=== PATIENT | female | born 1980 | race Caucasian/White ===

== ENCOUNTER 2020-03-19 09:24 | Outpatient (CLI) | payer OTHER, SELFPAY ==
[2020-03-19 09:51] LABS: Hematocrit 40.7 % (37.0-47.0); Hemoglobin 13.8 g/dL (12.0-15.0); Mean Corpuscular HGB Conc 33.9 g/dl (32-36); Mean Corpuscular Hemoglobin 31.5 pg (26-34); Mean Corpuscular Volume 92.9 fl (80-100); Mean Platelet Volume 9.7 fl (7.4-10.4); Platelet Count Result 243 k/mm3 (150-375); Red Blood Count 4.38 M/mm3 (4.2-5.4); Red Cell Distribution Width 12.5 % (11.5-14.5); White Blood Count 4.4 K/mm3 (4.5-10.0)
== END 2020-03-19 09:25 | disposition home or self-care (01) ==
LOC: ANHSURGERY 09:34
PROVIDERS: PCP Physician Assistant; Visit Provider Obstetrics & Gynecology
DX: R10.2 Pelvic and perineal pain (principal)
CPT/HCPCS: 36415; 85027; 87086; 87088

== ENCOUNTER 2020-03-21 03:54 | Outpatient (CLI) | payer OTHER, SELFPAY ==
[2020-03-21 19:05] LABS: SARS-CoV-2 RNA PCR Negative
== END 2020-03-21 03:55 | disposition home or self-care (01) ==
LOC: ANHCOVIDDT 03:54
PROVIDERS: PCP Physician Assistant; Visit Provider Obstetrics & Gynecology
DX: Z01.812 Encounter for preprocedural laboratory examination (principal); Z20.828 Contact with and (suspected) exposure to other viral communicable diseases
CPT/HCPCS: 87635; C9803; U0003

== ENCOUNTER 2020-03-23 01:10 | Day surgery (SDC) | payer OTHER, SELFPAY ==
[2020-03-13 11:08] VITALS: BMI 24.0
--- NOTE | 2020-03-22 13:59 | WPDANESEPPF ---
Anes - Initial Pre Proc Eval Procedure: Operation Date: 03/23/20 12:00 Proposed Procedures p Total Laparoscopic Hysterectomy With Bilateral Salpingectomy - Laurence Jones MD s Cystoscopy - Laurence Jones MD <Gene Greenwood MD - Last Filed: 03/26/20 06:49> Date/Time: 03/22/20 13:59 <Gene Greenwood MD - Last Filed: 03/26/20 06:49> Surgeon: Laurence Jones MD <Gene Greenwood MD - Last Filed: 03/26/20 06:49> Pre Op Diagnosis: Abnormal Uterine Bleeding, Pelvic Pain <Gene Greenwood MD - Last Filed: 03/26/20 06:49> Patient Data Age: 40 Gender: F Height: 1.63 m Weight: 63.5 kg <Gene Greenwood MD - Last Filed: 03/26/20 06:49> Allergies Allergy/AdvReac Type Severity Reaction Status Date / Time adhesive tape Allergy REDNESS, Verified 03/23/20 11:29 SWELLING <Gene Greenwood MD - Last Filed: 03/26/20 06:49> Home Medications Medication Instructions Recorded Confirmed Type cholecalciferol (vitamin D3) 150 mcg PO DAILY 03/13/20 03/23/20 History [Vitamin D3] multivitamin 1 tablet PO DAILY 03/13/20 03/23/20 History thyroid (pork) [ARMOR RECONNAISSANCE SPECIALIST Thyroid] 30 mg PO DAILY 03/13/20 03/23/20 History hydrocodone-acetaminophen [[place]] 1 tab PO Q3H PRN #10 tablet 03/23/20 Rx ketorolac 10 mg PO Q6H 5 Days #20 tablet 03/23/20 Rx <Gene Greenwood MD - Last Filed: 03/26/20 06:49> Patient hx anesthesia problems: none <Jagdish Epps MD - Last Filed: 03/23/20 11:58> Family hx anesthesia problems: none <Jagdish Epps MD - Last Filed: 03/23/20 11:58> PMFSH Past Medical History Medical History: Medical History Hypothyroidism PCOS (polycystic ovarian syndrome) <Gene Greenwood MD - Last Filed: 03/26/20 06:49> Surgical History Surgical History: Surgical History H/O arthroscopic knee surgery H/O laparoscopy <Gene Greenwood MD - Last Filed: 03/26/20 06:49> Social History Social History: Social History Smoking status: Never smoker Alcohol intake: current Drinks per week: 5 Spiritual care concerns: No <Gene Greenwood MD - Last Filed: 03/26/20 06:49> Anes - Eval Final PreProcedure Day of Procedure 03/22/20 13:59 <Gene Greenwood MD - Last Filed: 03/26/20 06:49> Patient weight: normal <Gene Greenwood MD - Last Filed: 03/26/20 06:49> normal <Jagdish Epps MD - Last Filed: 03/23/20 11:58> Heart: regular rate and rhythm <Gene Greenwood MD - Last Filed: 03/26/20 06:49> regular rate and rhythm <Jagdish Epps MD - Last Filed: 03/23/20 11:58> Lungs: clear to auscultation and normal air movement <Gene Greenwood MD - Last Filed: 03/26/20 06:49> clear to auscultation <Jagdish Epps MD - Last Filed: 03/23/20 11:58> Airway: Mallampati scale class II <Gene Greenwood MD - Last Filed: 03/26/20 06:49> Mallampati scale class II <Jagdish Epps MD - Last Filed: 03/23/20 11:58> Neurological: alert and oriented <Gene Greenwood MD - Last Filed: 03/26/20 06:49> alert and oriented <Jagdish Epps MD - Last Filed: 03/23/20 11:58> Last oral intake: >/= 8 hours <Gene Greenwood MD - Last Filed: 03/26/20 06:49> >/= 8 hours <Jagdish Epps MD - Last Filed: 03/23/20 11:58> ASA classification: II <Gene Greenwood MD - Last Filed: 03/26/20 06:49> II <Jagdish Epps MD - Last Filed: 03/23/20 11:58> Emergent: no <Gene Greenwood MD - Last Filed: 03/26/20 06:49> no <Jagdish Epps MD - Last Filed: 03/23/20 11:58> Anesthetic plan: proceed <Gene Greenwood MD - Last Filed: 03/26/20 06:49> proceed <Jagdish Epps MD - Last Filed: 03/23/20 11:58> Anesthesia type and monitoring: general
[2020-03-23] VITALS (9 sets, daily range): BP systolic 99–112; BP diastolic 36–70; PULSE 66–88; RESP 10–18; TEMP 36.1–36.6; O2SAT 97–100
[2020-03-23] MEDS: LACTATED RINGERS 1,000 ML 30 ML IV CONT ×2 (11:06→15:27)
[2020-03-23] MEDS: ACETAMINOPHEN 500 MG TABLET 1000 MG PO (11:09)
[2020-03-23] MEDS: KETOROLAC 15 MG/ML VIAL (*BKC) IV PUSH (11:10)
[2020-03-23] MEDS: SCOPOLAMINE 1.5 MG PATCH TRANSDERM (12:09)
--- NOTE | 2020-03-23 12:16 | PM.HPGS ---
History of Present Illness History of Present Illness Consent: Risks, benefits, and alternatives have been discussed and questions answered. Patient agrees to proceed with procedure. Chief complaint: Abnormal Uterine Bleeding, Pelvic Pain Narrative: Ayala Torres is a 40 year old female had a laparoscopy showing pelvic congestion syndrome. Discussed risk/benefits/altenratives, will proceed with total laparoscopic hysterectomy with cystoscopy Review of Systems Review of Systems: All systems reviewed & are unremarkable except as noted in HPI and below Constitutional: Constitutional: Reports no additional constitutional complaints Eyes: Eyes: Reports no additional eye complaints ENT: Reports system reviewed and no additional complaints, except as documented Cardiovascular: Cardiovascular: Reports no additional cardiovascular complaints Respiratory: Respiratory: Reports no additional respiratory complaints Gastrointestinal: Gastrointestinal: Reports no additional gastrointestinal complaints Genitourinary: Genitourinary: Reports no additional female genitourinary complaints Musculoskeletal: Musculoskeletal: Reports no additional musculoskeletal complaints Integumentary/Breasts: Skin/Breast: Reports system reviewed and no additional complaints, except as docu Neurologic: Reports system reviewed and no additional complaints, except as documented Psychiatric: Psychiatric: Reports no additional psychiatric complaints Endocrine: Endocrine: Reports no additional endocrine complaints Hematologic/Lymphatic: Hematologic/Lymphatic: Reports no additional hematologic/lymphatic complaints Allergic/Immunologic: Allergic/Immunologic: Reports no additional allergic/immunologic complaints PMF Past Medical History Medical History Hypothyroidism PCOS (polycystic ovarian syndrome) Surgical History Surgical History H/O arthroscopic knee surgery H/O laparoscopy Social History Social History Smoking status: Never smoker Alcohol intake: current Drinks per week: 5 Spiritual care concerns: No Meds Home Medications and Allergies Home Medications Medication Instructions Recorded Confirmed Type cholecalciferol (vitamin D3) 150 mcg PO DAILY 03/13/20 03/23/20 History [Vitamin D3] levonorgestrel [Mirena] 1 device INTRAUTERINE ONCE 03/13/20 03/13/20 History multivitamin 1 tablet PO DAILY 03/13/20 03/23/20 History thyroid (pork) [COMMERCIAL LENDING RELATIONSHIP MANAGER Thyroid] 30 mg PO DAILY 03/13/20 03/23/20 History Allergies Allergy/AdvReac Type Severity Reaction Status Date / Time adhesive tape Allergy REDNESS, Verified 03/23/20 11:29 SWELLING Vital Signs Vital Signs - 24 hr 03/23/20 11:00 Temperature 36.6 C Pulse Rate 66 Respiratory Rate 18 Blood Pressure 109/70 Pulse Oximetry 99 Exam Const: General: cooperative, healthy appearing, comfortable and no acute distress HENMT: Head: normal to inspection Ears: hearing grossly normal bilaterally General nose exam: Normal external nose present Face and sinus: normal facial exam Eyes: General: appearance normal, both eyes and all related structures Visual Goel: normal visual goel by confrontation Pupils: Equal, round and reactive pupils present EOM: EOMs intact bilaterally Neck: Neck: normal visual inspection and full ROM Resp: Effort & Inspection: normal respiratory effort Cardio: Jugular venous distension: no JVD Palpation: normal PMI Rate: regular rate GI: Inspection: normal to inspection Percussion: Yes normal to percussion Auscultation: normal bowel sounds Rectal Exam: visual inspection normal Back/Spine/Pelvis: Back: no CVA tenderness Skin: General skin exam: normal color and no rashes or lesions noted Neuro: General: oriented to person, oriented to place, oriented to time an
--- NOTE | 2020-03-23 12:20 | WPDHPUPDATE1 ---
History and Physical Update Update Date/Time: 03/23/20 12:20 History and Physical has been reviewed, including an updated exam of the patient. There are NO changes in the patient's condition. Risks, benefits, and alternatives have been discussed and questions answered. Patient agrees to proceed with procedure.
[2020-03-23] MEDS: ceFAZolin 2 GM/D5W 50 ML 2 GM/50 ML BAG IVPB (12:31)
[2020-03-23] MEDS: BUPIVACAINE/EPINEPHRINE 0.5% 10 ML VIAL INFILTRATE (13:29)
--- NOTE | 2020-03-23 15:13 | PM.PROC ---
Procedure Note - Detailed Date of procedure: 03/23/20 Pre-op diagnosis: Abnormal Uterine Bleeding, Pelvic Pain Post-op diagnosis: same Procedure performed: Total laparoscopic hysterectomy with bilateral salpingectomy and cystoscopy Description of procedure: She was taken to the operating room where general anesthesia was found to be adequate. She was then prepared and draped in the dorsal lithotomy position in [facility]. A speculum was used to visualize the cervix and a single toothed tenaculum placed on the anterior lip. A Vcare medium uterine manipulator was placed within the cervix and intrauterine ballon insufflated. The tenacululm removed and the Vcare cup affixed on the cervix and set in place. The speculum was removed. Attention was turned to the umbilicus which was injected with 0.5% marcaine with epinephrine. The infraumbilical fold incised with a scalpel and veres needle used to enter into the peritoneum. Saline drop test was positive for peritoneal entry so CO2 was used for insufflation. A 5mm port was placed with optical entry. The patient was then placed in Trendelenberg. There were no adhesions. The uterus was elevated and bilateral tubes and ovaries were inspected. The right ovary had a cyst and was tipped down and adhesed to the right pelvic side wall. The left ovary and tube were free floating with recent ovarian cyst noted. Right and left 5mm ports were placed 3 fingerbreadths medial to the ASIS on both sides by injecting the skin with 0.5% marcaine with epinephrine, incising with the scalpel and placed with direct visualization A suprapubic port was placed in a similar fashion. The left tuboovarian ligament was cauterized and taken down to the wall of the uterus. I then traveled across the round ligament and through the broad ligament, then down through the uteroovarian ligament. The anterior leaf of the broad ligament was opened and incised to start the bladder flap. Posteriorly it was started as well. The uterine arteries were then cauterized. Attention was turned to the right where similarly the tuboovarian ligament was cauterized, followed by the round ligament, then the broad ligament, then through the uteroovarian ligament. I then elevated the uterus and took down the posteior leaf of the broad ligament. The anterior leaf was further dissected and completed in the midline. Then the bladder flap was develped by dissecting the bladder back. The right uterine artery was cauterized. The uterine manipulator pulled out and so the suzette was attempted to be used since the vcare balloon had popped. The Suzette was not staying in place either so it was removed and we completed the colpotomy incision vaginally. The pneumoperitoneum was released. So vaginally, the anterior lip of the cervix was grasp and the cervical vaginal mucosa was injected with 0.5% marcaine with epinephrine. A circumferential incision was made with Bovie [id number] from the cervicalvaginal junction. The cervix was dissected with the bovie for about a centimenter then a grasper was used to grasp the anterior vaginal cuff and Jha scissors used to dissect the bladder. Similarly the posterior cuff was dissected and I entered into the posterior culdesac. The Ligasure was used the cauterize the uterosacral ligaments bilaterally, then the cardinal ligament. I then entered into the anterior culdesac with mayos and retractor placed. Ligasure was used to complete the dissection of the cardinal ligaments and the uterus was then pulled through the vaginal incision. The cuff was inspected and hemostatic so it was closed with 0-Vicryl suture in 4 figure of 8 sutures. Cystoscopy was used to visualize the bladder and appeared normal. Ureter jets spewed urine bilaterally. The bladder was intact. The bladder was then distended to 550cc. Then released the urine and looked again. 300cc was used to look a second time and there were trabeculations and increased vacularity.
[2020-03-23] MEDS: ONDANSETRON INJ 4 MG/2 ML VIAL IV PUSH (15:55)
--- NOTE | 2020-03-23 16:38 | PC.NURSE ---
This patient, Ayala Torres, was received from PACU per bed to room 286. Patient/family oriented to unit policies and routines
[2020-03-23] MEDS: KETOROLAC 30 MG/ML VIAL (*BKC) IV PUSH (17:35)
[2020-03-23] MEDS: LIDOCAINE 5% PATCH 1 PATCH TRANSDERM (19:00)
[2020-03-23 20:07] LABS: Basophils Percent Auto 0.2 % (0.2-1.2); Hematocrit 37.1 % (37.0-47.0); Hemoglobin 12.6 g/dL (12.0-15.0); Immature Granulocyte Absolute 0.03 K/mm3 (0.00-0.031); Immature Granulocyte Percent A 0.3 % (0-0.5); Lymphocytes Absolute Auto 0.39 K/mm3 (0.9-3.2); Lymphocytes Percent Auto 4.2 % (18.3-44.2); Mean Corpuscular Volume 91.2 fl (80-100); Mean Platelet Volume 9.4 fl (7.4-10.4); Monocytes Absolute Auto 0.1 K/mm3 (0.1-0.6); Monocytes Percent Auto 0.9 % (2.6-8.5); Neutrophils Absolute Auto 8.8 K/mm3 (1.3-6.7); Neutrophils Percent Auto 94.4 % (45.5-73.1); Platelet Count Result 200 k/mm3 (150-375); Red Blood Count 4.07 M/mm3 (4.2-5.4); Red Cell Distribution Width 12.2 % (11.5-14.5); White Blood Count 9.3 K/mm3 (4.5-10.0)
== END 2020-03-23 20:35 | disposition home or self-care (01) ==
LOC: ANHSURGERY 15:51 → ANHOB2 16:40
PROVIDERS: PCP Physician Assistant; Visit Provider Obstetrics & Gynecology
PROC: 0UT9FZZ Resection of Uterus, Via Natural or Artificial Opening With Percutaneous Endoscopic Assistance (ICD-10-PCS; CPT 58571; principal; 2020-03-23 12:00)
PROC: 0TJB8ZZ Inspection of Bladder, Via Natural or Artificial Opening Endoscopic (ICD-10-PCS; CPT 52000; 2020-03-23 12:00)
DX: N93.9 Abnormal uterine and vaginal bleeding, unspecified (principal); R10.2 Pelvic and perineal pain; N72 Inflammatory disease of cervix uteri; N73.6 Female pelvic peritoneal adhesions (postinfective); E03.9 Hypothyroidism, unspecified; N94.89 Other specified conditions associated with female genital organs and menstrual cycle; N83.8 Other noninflammatory disorders of ovary, fallopian tube and broad ligament; E28.2 Polycystic ovarian syndrome
CPT/HCPCS: 58571; 36415; 85025; 88307; 99199; A9270; J0330; J0690; J1100; J1170; J1885; J2250; J2405; J2704; J2710; J3010; J7030; J7120

== ENCOUNTER 2020-06-04 14:39 | Emergency (ER) | payer OTHER, SELFPAY ==
--- NOTE | 2020-06-04 14:47 | ED.URI ---
HPI - URI/Sore Throat General Chief Complaint: Upper Respiratory Infection Stated Complaint: upper respiratory infection Source: patient Mode of arrival: ambulatory Limitations: no limitations History of Present Illness HPI Narrative: Patient is a 40-year-old female who presents complaining of sinus pressure, congestion, bilateral ear pain x9-10 days. She reports Covid testing this morning which was negative. She denies fever, body aches, nausea, vomiting or diarrhea. She denies all other complaints at this time. Related Data Home Medications Medication Instructions Recorded Confirmed cholecalciferol (vitamin D3) 150 mcg PO DAILY 03/13/20 06/04/20 [Vitamin D3] multivitamin 1 tablet PO DAILY 03/13/20 06/04/20 thyroid (pork) [JIG BORE TOOL MAKER Thyroid] 30 mg PO DAILY 03/13/20 06/04/20 Allergies Allergy/AdvReac Type Severity Reaction Status Date / Time adhesive tape Allergy REDNESS, Verified 03/23/20 11:29 SWELLING Review of Systems Review of Systems: Narrative: CONSTITUTIONAL: Denies fever, chills, or sweats. EYES: Denies visual changes, redness, or discharge. ENT: Denies rhinorrhea, reports congestion, sinus pressure, and bilateral otalgia. CARDIOVASCULAR: Denies chest pain, palpitations, or edema. RESPIRATORY: Denies cough or dyspnea. GASTROINTESTINAL: Denies abdominal pain, nausea, vomiting, or diarrhea. GENITOURINARY: Denies dysuria or hematuria. SKIN: Denies rash or itching. MUSCULOSKELETAL: Denies back pain, joint pain, or myalgia. NEUROLOGIC: Denies headache, numbness, dizziness, or weakness. PSYCHIATRIC: Denies anxiety or depression. PMFSH Past Medical History Medical History Hypothyroidism PCOS (polycystic ovarian syndrome) Surgical History Surgical History H/O arthroscopic knee surgery H/O laparoscopy Social History Social History Smoking status: Never smoker Alcohol intake: current Drinks per week: 5 Gender identity (if verbalized by the patient): Female Spiritual care concerns: No Exam Narrative: Exam Narrative: GENERAL: Well-appearing, well-nourished, and in no acute distress. HEAD: Normocephalic, atraumatic. EYES: No redness or drainage. ENT: Mucous membranes pink and moist. Nares clear. No rhinorrhea. TMs normal bilaterally. Throat normal. Uvula midline. Maxillary and frontal sinus tenderness with palpation NECK: AROM. Supple. No lymphadenopathy. CHEST: No respiratory distress. HEART: Regular rate and rhythm. EXTREMITIES: Normal range of motion. SKIN: Warm, dry, no rash. NEURO: No focal deficits. Alert and oriented x3. Gait steady. PSYCH: Normal affect. No signs of depression or anxiety. MDM - URI/Sore Throat MDM Narrative Medical decision making narrative: Patient most likely has sinusitis. Patient to be treated with Augmentin at this time. Discussed following up of Covid testing patient continues to feel poorly or develops more symptoms. Patient is stable for discharge to home with outpatient follow-up as discussed. Differential Diagnosis Differential diagnosis: Likely upper respiratory infection, otitis media, sinusitis, viral infection and pharyngitis Critical Care Time Critical Care Time Critical Care Time: No Discharge Plan Discharge Clinical Impression: Sinusitis Qualifiers: Sinusitis location: unspecified location Chronicity: acute Recurrence: not specified as recurrent Qualified Code(s): J01.90 - Acute sinusitis, unspecified Patient Disposition: Home, Self-Care Condition: Stable Instructions: Antibiotic Form, Sinusitis (ED) Additional Instructions: Take antibiotics as directed. Follow-up with your PCP in 3 to 5 days if there is no improvement. If you develop fever, chest pain or shortness of breath, please go to the emergency department immediately for further evaluation. Pres
[2020-06-04 14:51] VITALS: BP 132/89; PULSE 83; RESP 20; TEMP 37.2; O2SAT 98
== END 2020-06-04 15:08 | disposition home or self-care (01) ==
PROVIDERS: Emergency Provider Nurse Practitioner; PCP Physician Assistant
DX: J01.90 Acute sinusitis, unspecified (principal); E03.9 Hypothyroidism, unspecified; E28.2 Polycystic ovarian syndrome
CPT/HCPCS: 99213; G0463

== ENCOUNTER 2021-01-05 10:24 | Emergency (ER) | payer OTHER, SELFPAY ==
--- NOTE | ~2021-01-05 | XR_ITS ---
XR shoulder LT min 2V 01/05/2021 11:58 INDICATION: Left shoulder pain PROCEDURE: 4 views left shoulder COMPARISON: No prior studies for comparison FINDINGS: Fracture, dislocation or subluxation is not identified. The soft tissues appear within norm al limits. No foreign bodies are identified. IMPRESSION: 1: NO ACUTE BONE OR JOINT ABNORMALITY IDENTIFIED. Reviewed, dictated and finalized at location A.
[2021-01-05 10:36] VITALS: BP 127/82; PULSE 72; RESP 16; TEMP 36.7; O2SAT 99
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
== END 2021-01-05 10:54 | disposition home or self-care (01) ==
PROVIDERS: Emergency Provider Nurse Practitioner Family; PCP Physician Assistant
DX: G56.82 Other specified mononeuropathies of left upper limb (principal); E03.9 Hypothyroidism, unspecified; E28.2 Polycystic ovarian syndrome
CPT/HCPCS: 73030; 99213; A4565; G0463

== ENCOUNTER 2021-01-29 12:37 | Emergency (ER) | payer OTHER, SELFPAY ==
[2021-01-29 13:05] VITALS: BP 114/79; PULSE 86; RESP 16; TEMP 36.8; O2SAT 97
--- NOTE | 2021-01-29 13:52 | ED.URI ---
HPI - URI/Sore Throat General Chief Complaint: Upper Respiratory Infection Stated Complaint: Sinus,Sore Throat,Rt Ear Pain Source: patient and RN notes reviewed Mode of arrival: ambulatory History of Present Illness HPI Narrative: This is a 40-year-old female presented to urgent care with complaints of tenderness and pain to her frontal area and maxillary area. According to patient for couple days she has had tenderness and pain to her frontal and maxillary area she also complains of postnasal dripping. Patient stated she started taking her allergy medications Sudafed, and Claritin but her condition worsen. She notes that usually when she starts taking her allergy medications early she prevents sinus infections the patient denies SOB, CP, palpitation, extremity numbness, lightheadedness, dizziness, constipation, diarrhea, chills, or fever. MD elicited complaint: sinus pain Related Data Home Medications Medication Instructions Recorded Confirmed thyroid (pork) [CFD ENGINEER Thyroid] 30 mg PO DAILY 03/13/20 01/05/21 Allergies Allergy/AdvReac Type Severity Reaction Status Date / Time adhesive tape Allergy REDNESS, Verified 01/29/21 13:12 SWELLING Review of Systems Review of Systems: A 14 organ system Review of Systems was performed and pertinent positives included in the HPI, otherwise remaining ROS is negative. [facility] Past Medical History Medical History Hypothyroidism PCOS (polycystic ovarian syndrome) Surgical History Surgical History H/O arthroscopic knee surgery H/O laparoscopy Family History Family History (Updated 01/29/21 @ 13:54 by RAAD Hodges) Other Family history non-contributory Social History Social History Smoking status: Never smoker Alcohol intake: current Drinks per week: 5 Gender identity (if verbalized by the patient): Female Spiritual care concerns: No Exam Narrative: GENERAL: This is a well-nourished, well-developed patient, in no apparent distress. HEAD: normocephalic, atraumatic. Frontal and maxillary tenderness and pain EYES: PERRL. Sclera clear/white. Vision is grossly intact. EARS: External ears normal, auditory canals clear and without drainage, TMs normal without perforation. Hearing grossly intact. NOSE: External nose normal with no obvious nasal discharge, nares without redness, no rhinorrhea. THROAT: Mucous membranes moist, posterior pharynx clear. NECK: Neck supple, non-tender without lymphadenopathy, masses or thyromegaly. CARDIOVASCULAR: Regular rate and rhythm without murmurs, gallops, or rubs. RESPIRATORY: Clear to auscultation. Breath sounds equal bilaterally. No wheezes, rales, or rhonchi. GASTROINTESTINAL: Abdomen soft, non-tender, nondistended. Bowel sounds are active. No hepato-splenomegaly, or palpable masses. No guarding. SKIN: warm, intact with no suspicious lesions or rash, good texture and turgor. NEURO: awake, alert, and oriented to person, place and time. There were no obvious focal neurologic abnormalities. Steady gait EXTREMITIES: Normal range of motion. No edema. No calf tenderness. Negative Homans sign bilaterally. BACK: Nontender without deformity or crepitance. No flank tenderness. Course Course Emergency Course: Patient discharged with Augmentin and instructed to continue her sinus medications Vital Signs Vital signs: Vital Signs Temperature 98.2 F 01/29/21 13:05 Pulse Rate 86 01/29/21 13:05 Respiratory Rate 16 01/29/21 13:05 Blood Pressure 114/79 01/29/21 13:05 Pulse Oximetry 97 01/29/21 13:05 Temperature 98.2 F 01/29/21 13:05 Pulse Rate 86 01/29/21 13:05 Respiratory Rate 16 01/29/21 13:05 Blood Pressure 114/79 01/29/21 13:05 Pulse Oximetry 97 01/29/21 13:05 MDM - URI/Sore Throat Differential Diagnosis Differential diagn
== END 2021-01-29 13:57 | disposition home or self-care (01) ==
PROVIDERS: Emergency Provider Nurse Practitioner; PCP Physician Assistant
DX: J01.10 Acute frontal sinusitis, unspecified (principal); E03.9 Hypothyroidism, unspecified; E28.2 Polycystic ovarian syndrome
CPT/HCPCS: 99213; G0463

== ENCOUNTER 2022-07-17 19:18 | Emergency (ER) | payer OTHER, SELFPAY ==
--- NOTE | ~2022-07-17 | XR_ITS ---
XR abdomen/kub 1V 07/17/2022 19:51 INDICATION: Pain TECHNIQUE: KUB COMPARISON: None FINDINGS: Bowel gas pattern is normal. Moderate colonic fecal loading. There is no evidence of free a ir, mass, organomegaly, ascites or obstruction. No abnormal calculi are seen. The bones appear inta ct. IMPRESSION: 1: No acute abdominal abnormality identified. Reviewed, dictated and finalized at location A. ER HAND
[2022-07-17 19:26] VITALS: BP 129/81; PULSE 71; RESP 18; TEMP 36.3; O2SAT 100
--- NOTE | 2022-07-17 19:33 | ED.FEMALEGU ---
HPI - Female Genitourinary General Chief complaint: Urogenital-Female Stated complaint: Possible UTI Time Seen by Provider: 07/17/22 19:33 Source: patient and RN notes reviewed Mode of arrival: ambulatory Limitations: no limitations History of Present Illness HPI Narrative: 42-year-old female here with 1 day history of bilateral flank pain, myalgias, and suprapubic tenderness. Woke up this morning to worsening of flank pain and suprapubic tenderness. Urination is frequent with urgency but no pain. Has been nauseated without emesis since lunchtime today. Has been increasing fluid intake in an effort to flush kidneys. Despite increased fluid intake urine remains malodorous and dark. Denies change to caffeine consumption, carbonated beverage intake, or diet. Has had a hysterectomy and denies concerns for an STI. Has never had a kidney stone. Denies fevers, recent URI, sick contacts, shortness of breath, wheezes, or changes to bowel patterns. Related Data Home Medications Medication Instructions Recorded Confirmed thyroid (pork) 30 mg tablet (COOK SEAFOOD 30 mg PO DAILY 03/13/20 07/17/22 Thyroid) azelastine 205.5 mcg (0.15 %) 2 spray intranasal DAILY 02/09/22 07/17/22 nasal spray famotidine 20 mg tablet 20 mg PO DAILY 02/09/22 07/17/22 montelukast 10 mg tablet 10 mg PO HS 02/09/22 07/17/22 omeprazole 40 mg capsule,delayed 40 mg PO DAILY 02/09/22 07/17/22 release Allergies Allergy/AdvReac Type Severity Reaction Status Date / Time adhesive tape AdvReac Mild REDNESS, Verified 07/17/22 19:24 SWELLING Review of Systems Review of Systems: CONSTITUTIONAL: Denies fever, chills, or sweats. Endorses body aches CARDIOVASCULAR: Denies chest pain, palpitations, or edema. RESPIRATORY: Denies cough or dyspnea. GASTROINTESTINAL: Denies vomiting or diarrhea. Endorses abdominal pain and nausea GENITOURINARY: Reports frequency, urgency, and flank pain. Denies dysuria or karl hematuria SKIN: Denies rash, itching, or wounds. MUSCULOSKELETAL: Endorses back pain or myalgia. [facility] Past Medical History Medical History Hypothyroidism PCOS (polycystic ovarian syndrome) Surgical History Surgical History H/O arthroscopic knee surgery H/O laparoscopy Family History Family History Other Family history non-contributory Social History Social History Smoking status: Never smoker Alcohol intake: current Drinks per week: 5 Gender identity (if verbalized by the patient): Female Spiritual care concerns: No Comments At time of signature, I have reviewed and agree with nursing past medical, surgical, social and family history unless otherwise noted. Please see nursing chart for further information. There is no relevant family history pertinent to the presenting complaint Exam Narrative: GENERAL: Well-appearing and in no acute distress. HEAD: Normocephalic EYES: EOMI. ENT: Mucous membranes pink and moist. NECK: Normal AROM. Supple. CHEST: No respiratory distress. Clear to auscultation. HEART: Regular rate and rhythm. ABDOMEN: Soft, moderately tender RUQ and RLQ, nondistended, normal active bowel sounds. Negative for rebound, McBurney's, or Rivas's point tenderness. Positive for CVA tenderness bilaterally MUSCULOSKELETAL: No bony tenderness. SKIN: Warm, dry, no rash. NEURO: No focal deficits. Alert and oriented x3. Gait steady. Course Course Emergency Course: Patient is aware of diagnosis, understands and agrees to treatment plan. Anticipatory guidance given. Patient agrees to follow-up as directed and is aware of reasons to seek care at the emergency department. Portions of this record may have been created with voice recognition software Level of Care: Express Care Visit Vital Signs
== END 2022-07-17 20:04 | disposition home or self-care (01) ==
PROVIDERS: Emergency Provider Nurse Practitioner Family; PCP Physician Assistant
DX: R10.9 Unspecified abdominal pain (principal); E03.9 Hypothyroidism, unspecified; E28.2 Polycystic ovarian syndrome
CPT/HCPCS: 74018; 81003; 87086; 87088; 99213; G0463

== ENCOUNTER 2025-03-13 11:26 | Emergency (ER) | payer OTHER, SELFPAY ==
--- NOTE | ~2025-03-13 | XR_ITS ---
Examination: XR chest 2V Clinical History: LT SIDED CP Comparison: None Technique: PA and Lateral Findings: Cardiomediastinal silhouette normal size and configuration. Lungs clear. No acute bony abnormality. IMPRESSION: 1. No acute cardiopulmonary findings. Reviewed, dictated and finalized at location R.
--- OUTSIDE RECORDS SUMMARY | 2025-03-13 10:45 | XMS_ITS | Encounter Summary ---
Author Organization [facility] Healthcare Address [address] [place] [address] Care Team Providers Care Crane Follower Name Role Phone Lacey Jimenes Primary Care Provider [phone] Alok Keene MD Unavailable + [phone] Reason for Visit * Reason Comments Other Chest pains, mild fo r the past 24 hours - Entered by patientStarted yesterday, chest pains would come on in the middle of chest, but were never too strong, top shoulder and neck pain on the left side, light headed, lower abdominal pains started this morning more centered Encounter Details Date Type Department Care Team (Late st Contact Info) Description 03/13/2025 10:45 AM CDT Office Visit [facility] at [address] [address] Rowena Leroy NP [address] [place] [address] [address] [place] [address] Other chest pain (Primary Dx); Lightheadedness; Family history of DE (myocardial infarction) Social History Tobacco Use Types Packs/Day Years Used Date Smoking Tobacco: Never Passive Smoke Exposure: Never Smokeless Tobacco: Never Alcohol Use Standard Drinks/Week Comments Yes 2 (1 standard drink = 0.6 oz pur e alcohol) 2 weekly AUDIT-C Answer Date Recorded Q1: How often do you have a drink containing alc ohol? 2-3 times a week 09/21/2024 Q2: How many drinks containi ng alcohol do you have on a typical day when you are drinking? 1 or 2 09/21/2024 Q3: How often do you have si x or more drinks on one occasion? Never 09/21/2024 PHQ-2 Answer Date Recorded PHQ-2 Total Score (If total score is 3 or more points, staff should administer the PHQ-9) 0 03/10/2025 PHQ-9 Answer Date Recorded PHQ-9 Total Score 7 02/08/2024 Personal Safety Answer Date Recorded Have you ever been in or are you currently in a harmful physical or emotional relationship or is someone making you feel afraid or unsafe? 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 on file Not on file Not on file documented as of this encounter Last Filed Vital Signs Vital Sign Reading Time Taken Comments Blood Pressure 121/86 03/13/2025 10:41 AM CDT Pulse 75 03/13/2025 10:41 AM CDT Temperature 37.1 C (98.8 F) 03/13/2025 10:41 AM CDT Respiratory Rate 16 03/13/2025 10:41 AM CDT Oxygen Saturation 98% 03/13/2025 10:41 AM CDT Inhaled Oxygen Concentration - - Weight 66.2 kg (146 lb) 03/13/2025 10:41 AM CDT Height - - Body Mass Index 25.06 03/10/2025 1:16 PM CDT documented in this encounter Progress Notes * Rowena Leroy, FINISHED GOODS INSPECTOR - 03/13/2025 10:45 AM CDT Images from the original note were not included. Subjective/Objective Patient ID: Ayala Torres is a 44 y.o. female. This patient has verbally consented to recording this visit in order to utilize AI technology in generating this note. Chief Complaint Other (Chest pains, mild for the past 24 hours - Entered by patient/Started yesterday, chest pains would come on in the middle of chest, but were never too strong, top shoulder and neck pain on the left side, light headed, lower abdominal pains started this morning more centered ) History of Present Illness Ayala Torres is a 44 year old female who presents with chest pain radiating to the left shoulderand neck, accompanied by lightheadedness. She experiences chest pain that radiates to her left shoulder and neck, which is current but comes and goes throughout the day. The pain is accompanied by lightheadedness. No shortness of breath or dizziness. She has a history of chest pain approximately seven years ago, diagnosed as costochondritis, but notes that the current pain feels different from her previous episodes. She drove herself to the appointment and reports that the drive was fine. She is currently experiencing chest pain during the visit. She reports a family history of heart attacks. Review of Systems All other systems reviewed and are negative. Physical Exam CARDIOVASCULAR: Normal heart rhythm Physical Exam Vitals reviewed. Constitutional: General: She is not in acute distress. Appearance: Normal appearance. She is not ill-appearing. HENT: Head: Normocephalic. Mouth/Throat: Lips: [place]. Cardiovascular: Rate and Rhythm: Normal rate. Pulmonary: Effort: Pulmonary effort is normal. Breath sounds: Normal breath sounds. Skin: General: Skin is warm. Neurological: Mental Status: She is alert and oriented to person, place, and time. Psychiatric: Mood and Affect: Mood normal. Vitals: 03/13/25 1041 BP: 121/86 Pulse: 75 Resp: 16 Temp: 37.1 ??C (98.8 ??F) SpO2: 98% Weight: 66.2 kg (146 lb) No results found. 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 Hx of abnormal cervical Pap smear Migraines Motion sickness Osteoarthritis of knee 12/24/2011 PONV (postoperative nausea and vomiting) Rosacea 07/23/2020 Secondary insomnia 01/19/2019 Vitamin D deficiency 01/15/2018 Current Outpatient Medications: cholecalciferol (VITAMIN D-3) 5,000 unit capsule, Take 1 capsule (5,000 Units total) by mouth everyother day, Disp: , Rfl: doxycycline (VIBRAMYCIN) 100 mg capsule, Take 1 tablet/capsule (100 mg total) by mouth 2 (two) times a day, Disp: 180 tablet/capsule, Rfl: 0 EPINEPHrine 0.3 mg/0.3 mL auto-injection syringe, PLEASE SEE ATTACHED FOR DETAILED DIRECTIONS, Disp: , Rfl: famotidine (PEPCID) 40 mg tablet, Take 1 tablet (40 mg total) by mouth daily as needed for heartburn, Disp: 90 tablet, Rfl: 3 omeprazole (PriLOSEC) 20 mg capsule, Take 1 capsule (20 mg total) by mouth daily, Disp: 90 capsule,Rfl: 3 Allergies Allergen Reactions Adhesive Rash With Latex Bandaids only OK WITH TEGADERM, STERI-STRIPS, AND PAPER TAPE Nickel Rash Silver Rash Social History Tobacco Use Smoking status: Never Passive exposure: Never Smokeless tobacco: Never Substance and Sexual Activity Drug use: Never Sexual activity: Yes Partners: Male control/protection: Vasectomy Comment: Alcohol Use: Not At Risk (09/21/2024) AUDIT-C Frequency of Alcohol Consumption: 2-3 times a week Average Number of Drinks: 1 or 2 Frequency of Binge Drinking: Never Past Surgical History: Procedure Laterality Date APPENDECTOMY 2009 COLONOSCOPY Last one was 2019 ESOPHAGOGASTRODUODENOSCOPY 2013 ESOPHAGOGASTRODUODENOSCOPY 08/2023 FOOT SURGERY Right 11/2016 and 07/2017 FOREIGN BODY REMOVAL Right 05/20/2018 hand KNEE ARTHROSCOPY Left 2009 KNEE ARTHROSCOPY Left 2011 LAPAROSCOPY 2001 and 2006 PARTIAL HYSTERECTOMY 03/2020 ovaries remain Assessment/Plan 1. Other chest pain (Primary) - ECG 12 lead 2. Lightheadedness 3. Family history of DE (myocardial infarction) Results EKG read by Dr. Hall: NSR, delayed R-wave progression, borderline EKG. Assessment & Plan Chest pain with left shoulder and neck radiation Intermittent chest pain radiating to the left shoulder and neck. Current symptoms differ from previous costochondritis. Differential includes myocardial infarction, requiring urgent evaluation. - Perform EKG. - Refer to ER for further evaluation and monitoring, including blood work and cardiac enzyme testing. - Offer ambulance transport if she is uncomfortable driving. Lightheadedness Lightheadedness concurrent with chest pain. Requires further evaluation for potential cardiac event. - Include in ER referral for comprehensive evaluation. Education --GO TO ER. Patient declined EMS and states that she will drive herself to [facility]. Discussed with patient that if on the drive their symptoms worsen or new symptoms develop that she should stop immediately and dial 911. Patient verbalized understanding Disposition Treatment plan including expectations, follow up, and return precautions discussed with patient/parent, verbalizes understanding. Medication dosage, use, and potential adverse reactions discussed with patient/parent. Advised to follow up with PCP if symptoms do not resolve as expected or sooner if condition worsens. Signs/symptoms warranting ER evaluation reviewed. Patient and/or guardian was given an opportunity to ask questions, questions answered. Rowena Leroy NP This office note has been partially dictated using Portero software, and as a result portions of the record may have been created with this software. Occasional wrong-word or '[id number]' substitutions may have occurred due to the inherent limitations of voice recognition software. Read the chartcarefully and recognize, using context, where substitutions have occurred. Cosigned by Fabio Barr MD at 03/13/2025 4:43 PM CDT documented in this encounter Plan of Treatment Not on file documented as of this encounter Procedures Procedure Name Priority Date/Time Associated Diagnosis Comments ECG 12-LEAD Routine 03/13/2025 10:55 AM CDT Other chest pain documented in this encounter Results * ECG 12 lead (03/13/2025 10:55 AM CDT) us Rowena Leroy NP ECG ORDERABLES Edited Result - Final documented in this encounter Visit Diagnoses Diagnosis Other chest pain- Primary Lightheadedness Dizziness and giddiness Family history of DE (myocardial infarction) Family history of ischemic heart disease documented in this encounter Care Teams Crane Follower Relationship Specialty Start Date End Date Lacey Jimenes PA [facility] [address] [place] [address] PCP - General Physician Formal Waiter/Waitress 09/10/18 Alok Keene MD [address] [place] [address] Consulting Physician Family Medicine 12/01/18 documented as of this encounter
--- NOTE | 2025-03-13 11:27 | ECG_ITS ---
Test Date: 2025-03-13 11:32:56 Measurements Intervals Mcgrann Rate: 74 P: 84 MA: 162 QRS: 87 QRSD: 93 T: 69 QT: 361 QTc: 403 Interpretive Statements SINUS RHYTHM POSSIBLE LEFT ATRIAL ENLARGEMENT BASELINE ARTIFACT- I, II, III, AVR, AVL BORDERLINE ECG No previous ECG available for comparison Electronically Signed On 03-13-2025 11:35:12 CDT by Jan Blevins D.O.
[2025-03-13 11:44] LABS: Hematocrit 40.2 % (37.0-47.0); Hemoglobin 13.3 g/dL (12.0-15.0); Immature Granulocyte Percent A 0.0 % (0-0.5); Lymphocytes Absolute Auto 1.32 K/mm3 (0.9-3.2); Mean Corpuscular HGB Conc 33.1 g/dl (32-36); Mean Corpuscular Hemoglobin 29.6 pg (26-34); Mean Corpuscular Volume 89.3 fl (80-100); Nucleated Red Blood Cells Absolute Auto 0.000 K/mm3 (0.0-0.012); Nucleated Red Blood Cells Perc 0.0 % (0.0-0.2); Platelet Count Result 252 k/mm3 (150-375); Red Blood Count 4.50 M/mm3 (4.2-5.4); White Blood Count 4.4 K/mm3 (4.5-10.0)
[2025-03-13 11:54] VITALS: BP 133/86; PULSE 98; RESP 16; TEMP 36.6; O2SAT 100
[2025-03-13 12:00] LABS: Alanine Aminotransferase 14 U/L (6-35); Albumin Level 4.5 g/dL (3.5-5.1); Alkaline Phosphatase 72 U/L (38-126); Anion Gap 8 mmol/L (4-12); Aspartate Amino Transferase 27 U/L (14-36); Bilirubin,Total 0.8 mg/dL (0.2-1.3); Blood Urea Nitrogen 10 mg/dL (7-17); Calcium 9.0 mg/dL (8.4-10.2); Carbon Dioxide 25 mmol/L (22-30); Chloride 104 mmol/L (98-107); Estimated CRCL calculation 73 ml/min; Estimated Glomerular Filt Rate > 60; Glucose 103 mg/dL (65-110); Lipase 70 U/L (23-300); Potassium 3.8 mmol/L (3.4-5.0); Sodium 137 mmol/L (137-145); Total Protein 7.7 g/dL (6.3-8.2)
[2025-03-13 12:04] LABS: INR 1.0; Prothrombin Time 13.5 Seconds (11.1-14.7)
[2025-03-13 12:05] LABS: Partial Thromboplastin Time 29.1 Seconds (22.3-36.8)
[2025-03-13 12:07] LABS: Troponin I < 0.012 ng/mL (0.000-0.034)
--- OUTSIDE RECORDS SUMMARY | 2025-03-13 12:51 | XMS_ITS | Clinical Summary ---
Author Organization [facility] Address [facility] [place] [id number] Care Team Providers Care Glue Drier Operator Name Role Phone Unavailable Primary Care Provider Unavailabl e Source Comments [facility],non-owned Affiliates and Associated Physician Practices is amultiple site organization consisting of ambulatory clinics and hospital sitesin [place], [place], [place] and [place]. This disclosure is being madepursuant to the Care Everywhere program and may not contain all informatio navailable regarding this patient. Last updated 18.[facility] [employer] Allergies No known active allergies Immunizations Immunization Administration Dates Next Due INFLUENZA VACCINE, QUADR. (F LUZONE; FLULAVAL; FLUARIX; AFLURIA QUADRIVALENT; 6MO+), 0.5 ML (IIV4) 03/29/2019 Social History Tobacco Use Types Packs/Day Years Used Date Smoking Tobacco: Never Assessed Comments Unknown Sex and Gender Information Value Date Recorded Sex Assigned at Not on file Legal Sex Female 9:27 AM CDT Gender Identity Not on file Sexual Orientation Not on file Plan of Treatment Health Maintenance Due Date Last Done Comments LIPID TESTING 1980 MAMMOGRAM 1980 HIV SCREENING 1995 HEPATITIS C SCREENING 03/13/1998 DTAP/TDAP/TD VACCINES (1 - Tdap) 1999 HEPATITIS B VACCINE (1 of 3 - 19+ 3-dose series) 1999 HPV VACCINE (1 - 3-dose SCDM series) 2007 DEPRESSION SCREENING 06/01/2024 COVID-19 VACCINE ( - 2023-2 5 season) 2025 INFLUENZA VACCINE (#1) 2025 04/0104/01/2018 ZOSTER VACCINE (1 of 2) 2030 HIB VACCINE Aged Out No longer eligi ble based on patient's age to complete this topic MENINGOCOCCAL (Group B) VACCINE SHARED DECISION-MAKING Aged Out No longer eligible based on patient's age to complete this topic MENINGOCOCCAL GROUPS A/C/Y/W VACCINE Aged Out No longer eligible b ased on patient's age to complete this topic PNEUMOCOCCAL VACCINE Aged Out No long er eligible based on patient's age to complete this topic Insurance [facility]
--- OUTSIDE RECORDS SUMMARY | 2025-03-13 12:51 | XMS_ITS | Patient Health Record ---
Author Organization [facility] Address [address] [place], [place] [id number] Care Team Providers Care Dipper And Baker Name Role Phone MATA Barrientos Unavailable Cloin, Lacey Unavailable Unavailable Reason For Referral No Information Medications Medication SIG (Take, Route, Frequency, Duration) Notes Start Date End Date Status acetaminophen 325 MG / hydrocodone bitartrate 7.5 MG Oral Tablet ORAL acetaminophen 325 MG / hydrocodone bitartrate 7.5 MG Oral TabletOriginal Medicationacetaminophen 325 MG / hydrocodone bitartrate 7.5 MG Oral Tablet *Reorder from [employer] for eRx and Interaction Alerts* 7 Active Plan Of Treatment No Information Insurance Providers Payer Name Payer Address Payer Phone Subscriber Number Group Number Insured Name Patient Relationship to Insured Coverage Start Date Coverage End Date [facility] [address] [place] [phone] [id number] SAEED Torres Self - patient is the insured
--- NOTE | 2025-03-13 14:15 | ED.CHESTPAIN ---
HPI - Chest Pain General Chief Complaint: Chest Pain <OLYA Shi Last Filed: 03/13/25 14:22> Stated Complaint: chest pain <Elvira Elizondo PA-C - Last Filed: 03/13/25 14:22> Time Seen by Provider: 03/13/25 14:15 <Elvira Elizondo PA-C - Last Filed: 03/13/25 14:22> Focused HPI: Patient is a 44-year-old female who presents the ED with report of chest pain. Patient reports she developed an intermittent squeezing pain throughout her L sided chest yesterday. Reported ODOM and intermittent lightheadedness throughout the day. States she woke up this morning with persistent pain in L sided chest. Pain began to radiate into L shoulder/neck, through to L upper back. Still feeling lightheaded with a headache. Denies any alleviating factors to pain. Tried taking Tylenol yesterday w/o improvement. Denies hx of migraines. Denies SOB, cough. Denies hx of heart disease. Denies hx of DM, HTN, HLD, smoking. Is currently on doxycycline regimen for suspected hidradenitis suppurativa. GENERAL: Well-appearing, well-nourished, and in no acute distress. HEAD: Normocephalic, atraumatic. CHEST: Clear to auscultation. ?No respiratory distress. HEART: Regular rate and rhythm.? MSK: No chest wall tenderness to palpation NEURO: ?Alert and oriented x3. Patient screened in triage and initial orders placed.? ?Additional care and disposition to be based upon?diagnostic testing and treatment. <Elvira Elizondo PA-C - Last Filed: 03/13/25 14:22> Source: patient <OLYA Shi Last Filed: 03/13/25 14:22> Mode of arrival: ambulatory <OLYA Shi Last Filed: 03/13/25 14:22> Limitations: no limitations <OLYA Shi Last Filed: 03/13/25 14:22> History of Present Illness HPI narrative: Agree with the above the following additions/corrections: Female with chest pressure/epigastric abdominal pain that started yesterday described as a tightness. Nauseated but attributes that to taking doxy on empty stomach. Radiates to left shoulder where she has the rash which is why she is on the doxy (a 3 month course?). This has never happened before. No shortness of breath. Does not follow with a manager test. PCP is ARELIS Riojas. Had a stress test 7 years ago and had been monitored through [facility], [place]. Cardiac risk factors HTN: 0 (no, in fact hypotension) HLD:0 DM:0 Obese:0 Smoker:0 Personal history MD/TIA/CVA: 0 Fam Hx MD in first degree relative <65yo:0 <Chantel Cabello MD - Last Filed: 03/17/25 04:34> Related Data Home Medications: Home Medications ?Medication ?Instructions ?Recorded ?Confirmed ?Last Taken ?Type thyroid (pork) 30 mg tablet (WINDOW AND SIDING CRAFTSMAN 30 mg PO DAILY 03/13/20 07/17/22 03/23/20 09:00 History Thyroid) azelastine 205.5 mcg (0.15 %) 2 spray intranasal DAILY 02/09/22 07/17/22 Unknown History nasal spray famotidine 20 mg tablet 20 mg PO DAILY 02/09/22 07/17/22 Unknown History montelukast 10 mg tablet 10 mg PO HS 02/09/22 07/17/22 Unknown History omeprazole 40 mg capsule,delayed 40 mg PO DAILY 02/09/22 07/17/22 Unknown History release <Elvira Elizondo PA-C - Last Filed: 03/13/25 14:22> Allergies/Adverse Reactions: Allergies Allergy/AdvReac Type Severity Reaction Status Date / Time adhesive tape AdvReac Mild REDNESS, Verified 03/13/25 11:57 SWELLING <Elvira Elizondo PA-C - Last Filed: 03/13/25 14:22> [facility] Past Medical History Medical History: Medical History (Updated 03/17/25 @ 04:28 by Chantel Cabello MD) History of stress test approx 2017 PCOS (polycystic ovarian syndrome) Hypothyroidism <Elvira Elizondo PA-C - Last Filed: 03/13/25 14:22> Surgical History Surgical History: Surgical History H/O arthroscopic knee surgery H/O laparoscopy <Elvira Elizondo PA-C - Last Filed: 03/13/25 14:22> Family History Family History: Family History Other Family history non-contributory <Elvira Elizondo PA-C - Last Filed: 03/13/25 14:22> Social History Social History: Social History Smoking status: Never smoker Alcohol intake: current Drinks per week: 5 Gender identity (if verbalized by the patient): Female Spiritual care concerns: No <Elvira Elizondo PA-C - Last Filed: 03/13/25 14:22> Exam Const: General: healthy appearing, no acute distress and alert; No diaphoretic or ill appearing <Chantel Cabello MD - Last Filed: 03/17/25 04:34> Nutritional Appearance: well nourished and not obese <Chantel Cabello MD - Last Filed: 03/17/25 04:34> Limitations: no limitations <Chantel Cabello MD - Last Filed: 03/17/25 04:34> HENMT: Head: normal to inspection <Chantel Cabello MD - Last Filed: 03/17/25 04:34> Other: gross auditory acuity intact <Chantel Cabello MD - Last Filed: 03/17/25 04:34> Eyes: Direct Ophthalmoscopy: no photophobia <Chantel Cabello MD - Last Filed: 03/17/25 04:34> Other: no scleral icterus <Chantel Cabello MD - Last Filed: 03/17/25 04:34> Neck: Neck: normal visual inspection and no meningeal signs <Chantel Cabello MD - Last Filed: 03/17/25 04:34> Chest: Chest palpation & inspection: normal inspection of the chest <Chantel Cabello MD - Last Filed: 03/17/25 04:34> Other: no rash <Chantel Cabello MD - Last Filed: 03/17/25 04:34> Resp: Effort & Inspection: normal respiratory effort, not labored, no retractions and not tachypneic <Chantel Cabello MD - Last Filed: 03/17/25 04:34> Cardio: Rate: regular rate, not bradycardic and not tachycardic <Chantel Cabello MD - Last Filed: 03/17/25 04:34> GI: Inspection: non-distended <Chantel Cabello MD - Last Filed: 03/17/25 04:34> GI Palp: Yes Soft to palpation <Chantel Cabello MD - Last Filed: 03/17/25 04:34> Skin: General skin exam: normal color, no jaundice and no pallor <Chantel Cabello MD - Last Filed: 03/17/25 04:34> Rashes: no rashes <Chantel Cabello MD - Last Filed: 03/17/25 04:34> Neuro: General: patient oriented x3 and moves all extremities <Chantel Cabello MD - Last Filed: 03/17/25 04:34> Speech: normal speech <Chantel Cabello MD - Last Filed: 03/17/25 04:34> Psych: Mental Status: mental status grossly normal <Chantel Cabello MD - Last Filed: 03/17/25 04:34> Affect: normal affect and No Anxious affect present <Chantel Cabello MD - Last Filed: 03/17/25 04:34> Attitude: cooperative <Chantel Cabello MD - Last Filed: 03/17/25 04:34> Course Vital Signs Vital signs: Vital Signs Temperature 98 F 03/13/25 11:54 Pulse Rate 98 03/13/25 11:54 Respiratory Rate 16 03/13/25 11:54 Blood Pressure 133/86 03/13/25 11:54 Pulse Oximetry 100 03/13/25 11:54 Oxygen Delivery Room Air 03/13/25 11:54 Temperature 98 F 03/13/25 11:54 Pulse Rate 78 03/13/25 18:14 Respiratory Rate 20 03/13/25 18:14 Blood Pressure 110/76 03/13/25 18:14 Pulse Oximetry 100 03/13/25 18:14 Oxygen Delivery Room Air 03/13/25 16:05 <Elvira Elizondo PA-C - Last Filed: 03/13/25 14:22> Vital Signs Temperature 98 F 03/13/25 11:54 Pulse Rate 98 03/13/25 11:54 Respiratory Rate 16 03/13/25 11:54 Blood Pressure 133/86 03/13/25 11:54 Pulse Oximetry 100 03/13/25 11:54 Oxygen Delivery Room Air 03/13/25 11:54 Temperature 98 F 03/13/25 11:54 Pulse Rate 78 03/13/25 18:14 Respiratory Rate 20 03/13/25 18:14 Blood Pressure 110/76 03/13/25 18:14 Pulse Oximetry 100 03/13/25 18:14 Oxygen Delivery Room Air 03/13/25 16:05 <Chantel Cabello MD - Last Filed: 03/17/25 04:34> MDM - Chest Pain MDM Narrative Medical decision making narrative: MSE by ROBYN in triage. <Elvira Elizondo PA-C - Last Filed: 03/13/25 14:22> MSE by ROBYN in triage. Patient presents with left sided chest tightness since yesterday. Some pain radiates to shoulder and also having some epigastric abdominal pain and nausea thought attributes this to taking doxy on an empty stomach. In the emergency department they are afebrile with vital signs within normal limits. HEART SCORE History 2 highly suspicious 1 moderately suspicious 0 slightly suspicious History score [address] depression/elevation not due to LBBB, LVH, or digoxin [address] depression but LBBB, LVH, nonspecific repolarization changes 0 normal ECG score 0 Age 2 >/= 65 1 45-64 0 <45 Age score 0 Risk factors (HTN, hypercholesterolemia, DM, obesity with BMI >30, current smoker or cessation </=3mo), positive fam hx with parent or sibling with CVD before age 65, atherosclerotic disease (prior MD, PCI/CABG, CVA/TIA, or peripheral arterial disease) 2 >/= 3 risk factors or history of atherosclerotic dz 1 - 1-2 risk factors 0 no known risk factors Risk factor score 0 Initial Troponin 2 >3 times normal limit 1 1-3 times normal limit 0 less than or equal to normal limit Troponin score 0 Total HEART Score 1; repeat troponin within normal limits. Mild leukopenia which had been previously seen although that normalized on repeat lab in the interim. Dimer within normal limits. Patient had been given acetaminophen and ketorolac from triage. Aspirin had not been given, though unclear why not. Given she does have a component of epigastric abdominal pain, GI cocktail ordered. Also Zofran for nausea although this might be a medication side effect as she has been taking doxycycline the last several days and again today on an empty stomach. Had discussed HEART score .Stable for discharge but advised follow up with PCP and also given cardiology referral. <Chanetl Cabello MD - Last Filed: 03/17/25 04:34> Differential Diagnosis Differential diagnosis: Likely pneumothorax, stable angina, unstable angina pectoris, atypical chest pain, st elevation myocardial infarction, costochondritis, chest pain, biliary colic and other (shingles) <Chantel Cabello MD - Last Filed: 03/17/25 04:34> Lab Data Attestation: I reviewed the patient's lab results. <Chantel Cabello MD - Last Filed: 03/17/25 04:34> Lab results narrative: Chemistry and lipase within normal limits <Chantel Cabello MD - Last Filed: 03/17/25 04:34> Result diagrams: 03/13/25 11:39 03/13/25 11:39 <Elvira Elizondo PA-C - Last Filed: 03/13/25 14:22> Labs: Lab Results 03/13/25 03/13/25 Range/Units 11:39 14:43 WBC 4.4 L (4.5-10.0) K/mm3 RBC 4.50 (4.2-5.4) M/mm3 Hgb 13.3 (12.0-15.0) g/dL Hct 40.2 (37.0-47.0) % MCV 89.3 (80-100) fl MCH 29.6 (26-34) pg MCHC 33.1 (32-36) g/dl RDW 12.7 (11.5-14.5) % Plt Count 252 (150-375) k/mm3 MPV 9.3 (7.4-10.4) fl Immature Gran % (Auto) 0.0 (0-0.5) % Neut % (Auto) 60.1 (45.5-73.1) % Lymph % (Auto) 29.9 (18.3-44.2) % [place] % (Auto) 6.6 (2.6-8.5) % Eos % (Auto) 2.5 (0-4.4) % Baso % (Auto) 0.9 (0.2-1.2) % Lymph # (Auto) 1.32 (0.9-3.2) K/mm3 [place] # (Auto) 0.3 (0.1-0.6) K/mm3 Eos # (Auto) 0.1 (0-0.3) K/mm3 Baso # (Auto) 0.0 (0.0-0.1) K/mm3 Abs Immat Gran (auto) 0.00 (0.00-0.031) K/mm3 Absolute Neuts (auto) 2.7 (1.3-6.7) K/mm3 Absolute Nucleated RBC 0.000 (0.0-0.012) K/mm3 Nucleated RBC % 0.0 (0.0-0.2) % PT 13.5 (11.1-14.7) Seconds INR 1.0 APTT 29.1 (22.3-36.8) Seconds D-Dimer < 0.27 (<0.48) ug/mL Sodium 137 (137-145) mmol/L Potassium 3.8 (3.4-5.0) mmol/L Chloride 104 (98-107) mmol/L Carbon Dioxide 25 (22-30) mmol/L Anion Gap 8 (4-12) mmol/L BUN 10 (7-17) mg/dL Creatinine 0.73 (0.7-1.0) mg/dL Estim Creat Clear Calc 73 ml/min Estimated GFR > 60 (59 - ) Glucose 103 (65-110) mg/dL Calcium 9.0 (8.4-10.2) mg/dL Total Bilirubin 0.8 (0.2-1.3) mg/dL AST 27 (14-36) U/L ALT 14 (6-35) U/L Alkaline Phosphatase 72 (38-126) U/L Troponin I < 0.012 < 0.012 (0.000-0.034) ng/mL Total Protein 7.7 (6.3-8.2) g/dL Albumin 4.5 (3.5-5.1) g/dL Lipase 70 (23-300) U/L <Elvira Elizondo PA-C - Last Filed: 03/13/25 14:22> Lab Results 03/13/25 03/13/25 Range/Units 11:39 14:43 WBC 4.4 L (4.5-10.0) K/mm3 RBC 4.50 (4.2-5.4) M/mm3 Hgb 13.3 (12.0-15.0) g/dL Hct 40.2 (37.0-47.0) % MCV 89.3 (80-100) fl MCH 29.6 (26-34) pg MCHC 33.1 (32-36) g/dl RDW 12.7 (11.5-14.5) % Plt Count 252 (150-375) k/mm3 MPV 9.3 (7.4-10.4) fl Immature Gran % (Auto) 0.0 (0-0.5) % Neut % (Auto) 60.1 (45.5-73.1) % Lymph % (Auto) 29.9 (18.3-44.2) % [place] % (Auto) 6.6 (2.6-8.5) % Eos % (Auto) 2.5 (0-4.4) % Baso % (Auto) 0.9 (0.2-1.2) % Lymph # (Auto) 1.32 (0.9-3.2) K/mm3 [place] # (Auto) 0.3 (0.1-0.6) K/mm3 Eos # (Auto) 0.1 (0-0.3) K/mm3 Baso # (Auto) 0.0 (0.0-0.1) K/mm3 Abs Immat Gran (auto) 0.00 (0.00-0.031) K/mm3 Absolute Neuts (auto) 2.7 (1.3-6.7) K/mm3 Absolute Nucleated RBC 0.000 (0.0-0.012) K/mm3 Nucleated RBC % 0.0 (0.0-0.2) % PT 13.5 (11.1-14.7) Seconds INR 1.0 APTT 29.1 (22.3-36.8) Seconds D-Dimer < 0.27 (<0.48) ug/mL Sodium 137 (137-145) mmol/L Potassium 3.8 (3.4-5.0) mmol/L Chloride 104 (98-107) mmol/L Carbon Dioxide 25 (22-30) mmol/L Anion Gap 8 (4-12) mmol/L BUN 10 (7-17) mg/dL Creatinine 0.73 (0.7-1.0) mg/dL Estim Creat Clear Calc 73 ml/min Estimated GFR > 60 (59 - ) Glucose 103 (65-110) mg/dL Calcium 9.0 (8.4-10.2) mg/dL Total Bilirubin 0.8 (0.2-1.3) mg/dL AST 27 (14-36) U/L ALT 14 (6-35) U/L Alkaline Phosphatase 72 (38-126) U/L Troponin I < 0.012 < 0.012 (0.000-0.034) ng/mL Total Protein 7.7 (6.3-8.2) g/dL Albumin 4.5 (3.5-5.1) g/dL Lipase 70 (23-300) U/L <Chantel Cabello MD - Last Filed: 03/17/25 04:34> Imaging Data Radiologist's impression: IMPRESSION: 1. No acute cardiopulmonary findings. <Chantel Cabello MD - Last Filed: 03/17/25 04:34> ECG Data EKG #1: Attestation: I personally reviewed and interpreted this ECG as follows: <Chantel Cabello MD - Last Filed: 03/17/25 04:34> ECG completion date: 03/13/25 <Chantel Cabello MD - Last Filed: 03/17/25 04:34> ECG completion time: 11:32 <Chantel Cabello MD - Last Filed: 03/17/25 04:34> Interpretation: Normal sinus rhythm at a rate of 74 beats per minute. Good R-wave progression across the precordial leads. GA interval 162. QRS 93. QT/QTC 361/403. No T-wave inversions. <Chantel Cabello MD - Last Filed: 03/17/25 04:34> EKG #2: Attestation: I personally reviewed and interpreted this ECG as follows: <Chantel Cabello MD - Last Filed: 03/17/25 04:34> ECG completion date: 03/13/25 <Chantel Cabello MD - Last Filed: 03/17/25 04:34> ECG completion time: 14:37 <Chantel Cabello MD - Last Filed: 03/17/25 04:34> Interpretation: Sinus bradycardia at a rate of 59 beats per minute. Pr interval 164. QRS 99. QT/QTC 386/383. Good R-wave progression across the precordial leads. No T-wave inversions. <Chantel Cabello MD - Last Filed: 03/17/25 04:34> Discharge Plan Discharge Clinical Impression: Chest pain, Leukopenia, Epigastric abdominal pain <Elvira Elizondo PA-C - Last Filed: 03/13/25 14:22> Patient Disposition: Home <OLYA Shi Last Filed: 03/13/25 14:22> Condition: Stable <OLYA Shi Last Filed: 03/13/25 14:22> Instructions: Antibiotic Form, Chest Pain (ED), Epigastric Pain (ED) <OLYA Shi Last Filed: 03/13/25 14:22> Additional Instructions: As we discussed, your risk is low but not negligible. I do recommend outpatient work up. EIther your PCP can help arrange this or the name of a manager test is listed below. In the interim, continue taking your medications as prescribed though discuss with your PCP regarding the doxycycline use. Return to the emergency department with any new or worsening symptoms. <Elvira Elizondo PA-C - Last Filed: 03/13/25 14:22> Patient Language: German <Elvira Elizondo PA-C - Last Filed: 03/13/25 14:22> Prescriptions: No Action ondansetron 4 mg tablet,disintegrating 4 mg PO Q8H PRN (Reason: nausea and vomiting) Qty: 20 0RF nitrofurantoin monohyd/m-cryst [Macrobid] 100 mg capsule 100 mg PO Q12H 5 Days Qty: 10 0RF Rx Instructions: must administer with a meal/food thyroid (pork) [WINDOW AND SIDING CRAFTSMAN Thyroid] 30 mg tablet 30 mg PO DAILY omeprazole 40 mg capsule,delayed release(DR/EC) 40 mg PO DAILY famotidine 20 mg tablet 20 mg PO DAILY montelukast 10 mg tablet 10 mg PO HS azelastine 205.5 mcg (0.15 %) spray,non-aerosol 2 spray INTRANASAL DAILY <Elvira Elizondo PA-C - Last Filed: 03/13/25 14:22> Follow-up/Referrals: Cloin,ARELIS Morris [Primary Care Provider, Unknown] Bob Knight MD [Physician, Cardiology] <Elvira Elizondo PA-C - Last Filed: 03/13/25 14:22> Stand Alone Forms: Work/School Release IP <Elvira Elizondo PA-C - Last Filed: 03/13/25 14:22> Time of Disposition: 17:42 <Elvira Elizondo PA-C - Last Filed: 03/13/25 14:22> 17:42 <Chantel Cabello MD - Last Filed: 03/17/25 04:34>
--- NOTE | 2025-03-13 14:23 | ECG_ITS ---
Test Date: 2025-03-13 14:37:37 Measurements Intervals [place] Rate: 59 P: 70 GA: 164 QRS: 86 QRSD: 99 T: 61 QT: 386 QTc: 383 Interpretive Statements SINUS BRADYCARDIA BASELINE ARTIFACT- I, II, III, AVR, AVL BORDERLINE ECG Compared to ECG 03/13/2025 11:32:56 HEART RATE HAS DECREASED Electronically Signed On 03-13-2025 15:44:23 CDT by Jan Blevins D.O.
[2025-03-13] MEDS: ACETAMINOPHEN 500 MG TABLET 1000 MG PO (14:42)
[2025-03-13] MEDS: KETOROLAC 30 MG/ML VIAL (*BKC) IV PUSH (14:42)
[2025-03-13 14:44] VITALS: BP 135/86; PULSE 71; RESP 17; O2SAT 100
[2025-03-13 15:19] LABS: Troponin I < 0.012 ng/mL (0.000-0.034)
[2025-03-13 16:05] VITALS: O2SAT 100
[2025-03-13 16:09] VITALS: BP 136/86; PULSE 69; RESP 16; O2SAT 99
--- OUTSIDE RECORDS SUMMARY | 2025-03-13 17:10 | XMS_ITS | Clinical Summary ---
Author Organization [address] Address [address] [place] [phone] Care Team Providers Care [employer] Name Role Phone Lacey Jimenes Primary Care Provider [phone] Alok Keene MD Unavailable [phone] Allergies Active Allergy Reactions Criticality Noted Date Comments Adhesive Rash Medium 09/21/2024 With Latex Bandaids only OK WITH TEGADERM, STERI-STRIPS, AND PAPER TAPE Nickel Rash Medium 05/03/2024 Silver Rash Medium 05/03/2024 Medications cholecalciferol (VITAMIN D-3) 5,000 unit capsuleIndicati ons:supplement Take 1 capsule (5,000 Units total) by mouth every other day Active famotidine (PEPCID) 40 mg tabletIndicatio ns:gastroesopha geal reflux disease Take 1 tablet (40 mg total) by mouth daily as needed for heartburn 90 tablet 3 4 Active omeprazole (PriLOSEC) 20 mg capsuleIndicati ons:Chronic GERD Take 1 capsule (20 mg total) by mouth daily 90 capsule 3 5 Active EPINEPHrine 0.3 mg/0.3 mL auto-injection syringe PLEASE SEE ATTACHED FOR DETAILED DIRECTIONS 5 Active doxycycline (VIBRAMYCIN) 100 mg capsule Take 1 tablet/capsule (100 mg total) by mouth 2 (two) times a day 180 tablet/capsul e 5 06/08/19 26 Active Active Problems Problem Noted Date Diagnosed Date S/P arthroscopy of left shoulder 10/18/2024 Shoulder subluxation, left, subsequent encounter 08/16/2024 Injury of left shoulder 07/12/2024 Chronic left shoulder pain 05/03/2024 Adhesive capsulitis of left shoulder 05/03/2024 Chronic GERD 07/31/2022 Assessment & Plan (09/28/2024 12:50 PM CDT): Chronic, stable, trying take omeprazole but nausea is causing more of an issue. Orders: CBC with auto differential; Future Comprehensive metabolic panel; Future Lipid panel; Future Thyroid Function Adair; Future Vitamin D 25 hydroxy; Future Hepatitis C antibody Blood; Future Follicle stimulating hormone; Future LH; Future Estradiol; Future Progesterone; Future Assessment & Plan (02/08/2024 1:27 PM CDT): Patient will continue Pepcid as needed Assessment & Plan (06/24/2023 9:54 AM CERTIFIED HEARING INSTRUMENT DISPENSER): Start PPI script sent in Pepcid nightly 40 mg p.r.n. nightly scripts sent in Schedule EGD The risks (risks of bleeding, infection, perforation requiring surgery, missed polyps/cancer, dental injury, aspiration pneumonia, anesthesia complications such as drug reaction and cardiopulmonary complications including rare chance of ), benefits, and alternatives of the planned procedure were explained to the patient who understands and consents to having procedure done. Assessment & Plan (01/26/2023 3:57 PM CDT): Chronic. Stable. Continue omeprazole as needed. Migraine with aura and witho ut status migrainosus, not intractable 07/23/2020 Assessment & Plan (09/28/2024 12:50 PM CDT): Chronic, stable, takes meds as needed Orders: CBC with auto differential; Future Comprehensive metabolic panel; Future Lipid panel; Future Thyroid Function Adair; Future Vitamin D 25 hydroxy; Future Hepatitis C antibody Blood; Future Follicle stimulating hormone; Future LH; Future Estradiol; Future Progesterone; Future Assessment & Plan (01/26/2023 3:58 PM CDT): Chronic. Infrequent. These may be c luster migraines per patient. She will follow up with Neurology to get refills of her medications Assessment & Plan (01/17/2022 2:13 PM CDT): Stable BMI 24.0-24.9, adult 02/04/2019 Assessment & Plan (01/26/2023 3:57 PM CDT): Exercise 5 days a week, 30 mins per day recommended. Eat a heart healthy diet consisting of good, healthy protein (eggs, nuts, peanut butter, chicken, fish, turkey, less pork/beef), lots of vegetables, less carbohydrates and less sugar. Annual physical recommended. Assessment & Plan (01/17/2022 2:13 PM CDT): Educated patient on healthy diet/exercise plan. Exercise 150min-300min per week of moderate intensity. Diet: good, healthy protein (eggs, nuts, peanut butter, chicken, fish, turkey, less pork/beef), lots of vegetables, less carbohydrates and less sugar. Assessment & Plan (07/23/2020 10:24 AM CERTIFIED HEARING INSTRUMENT DISPENSER): Educated patient on healthy diet/exercise plan. Exercise 150min-300min per week of moderate intensity. Diet: good, healthy protein (eggs, nuts, peanut butter, chicken, fish, turkey, less pork/beef), lots of vegetables, less carbohydrates and less sugar. Assessment & Plan (02/04/2019 8:10 AM CDT): BMI is okay. Normal range is 18-25 and overweight is 25-30. Continue to work on eating healthy and exercising at least 150 minutes per week. Health maintenance examination 12/01/2018 Overview (02/29/2024): PMH: 02/08/24 Last pap: hyst 03/2020 with ovaries left, no cervix Last mammogram: 01/2024 Last dexa: Last colonoscopy/cologuard: 11/27/2020 repeat 10 yrs Last tdap: 11/30/2017 Last Prevnar/pneumovax: Last Shingrix: Last eye exam: Assessment & Plan (09/28/2024 12:50 PM CDT): Due for screening labs Orders: CBC with auto differential; Future Comprehensive metabolic panel; Future Lipid panel; Future Thyroid Function Adair; Future Vitamin D 25 hydroxy; Future Hepatitis C antibody Blood; Future Follicle stimulating hormone; Future LH; Future Estradiol; Future Progesterone; Future Assessment & Plan (02/08/2024 12:29 PM CDT): PMH: 02/08/24 Last pap: hyst 03/2020 with ovaries left, no cervix Last mammogram: 12/2022 Last dexa: Last colonoscopy/cologuard: 11/27/2020 repeat 10 yrs Last tdap: 11/30/2017 Last Prevnar/pneumovax: Last Shingrix: Last eye exam: Assessment & Plan (01/26/2023 3:57 PM CDT): PMH: 01/26/2023 Last pap: 12/2017, hyst 03/2020 with ovaries left, no cervix Last mammogram: 12/2021, 12/2022 Last dexa: Last colonoscopy/cologuard: 11/27/2020 repeat 10 yrs Last tdap: 11/30/2017 Last Prevnar/pneumovax: Last Shingrix: Last eye exam: 07/2020, Assessment & Plan (01/17/2022 1:56 PM CDT): PMH: 01/17/2022 Last pap: 12/2017, hyst 03/2020 Last mammogram: Ordered Last dexa: Last colonoscopy/cologuard: 11/27/2020 repeat 10 yrs Last tdap: 11/30/2017 Last Prevnar/pneumovax: Last Shingrix: Last eye exam: 07/2020, Assessment & Plan (07/23/2020 9:43 AM CERTIFIED HEARING INSTRUMENT DISPENSER): PMH:07/23/2020 Last pap: 12/2017, hyst 03/2020 Last mammogram: Ordered Last dexa: Last colonoscopy/cologuard: due age 45 Last tdap: 11/30/2017 Last Prevnar/pneumovax: Last Shingrix: Last eye exam: 07/2020 Vitamin D deficiency 01/15/2018 Assessment & Plan (09/28/2024 12:50 PM CDT): Chronic, stable, recheck labs, continue vitamin-D Orders: CBC with auto differential; Future Comprehensive metabolic panel; Future Lipid panel; Future Thyroid Function Adair; Future Vitamin D 25 hydroxy; Future Hepatitis C antibody Blood; Future Follicle stimulating hormone; Future LH; Future Estradiol; Future Progesterone; Future Assessment & Plan (02/08/2024 1:27 PM CDT): Stable, continue vitamin-D Assessment & Plan (01/26/2023 3:58 PM CDT): Chronic. Stable. Continue vitamin-D supplement Assessment & Plan (01/17/2022 2:13 PM CDT): Stable, continue vitamin-D Assessment & Plan (04/08/2021 3:38 PM CERTIFIED HEARING INSTRUMENT DISPENSER): Check labs Assessment & Plan (07/23/2020 10:26 AM CERTIFIED HEARING INSTRUMENT DISPENSER): Stable, continue vitamin-D. Due for labs Assessment & Plan (02/04/2019 8:09 AM CDT): Stable, continue meds Resolved Problems Problem Noted Date Diagnosed Date Resolved Date Gastroesophageal reflux dise ase without esophagitis 06/24/2023 02/08/2024 Assessment & Plan (06/24/2023 9:54 AM CERTIFIED HEARING INSTRUMENT DISPENSER): RECOMMENDATIONS given include: anti-reflux maneuvers, Avoid acidic foods like oranges and tomatoes., avoidance of spicy foods, avoid eating 3-4 hours before bed, elevation of the head of the bed, and weight loss Rosacea 07/23/2020 01/17/2022 Assessment & Plan (07/23/2020 10:25 AM CERTIFIED HEARING INSTRUMENT DISPENSER): New issue: Uncontrolled. Patient prescribed Metrogel. Patient/parent was counseled on medication risk, side effects, and possible complications. Patient/parent was counseled on how to properly take the medication and to call with any adverse reactions. Patient/parent stated understanding. Acute reaction to situational stress 07/23/2020 01/17/2022 Assessment & Plan (07/23/2020 10:26 AM CERTIFIED HEARING INSTRUMENT DISPENSER): New issue. Patient reports she has been having some more stress with COVID, blended family, recent hysterectomy. Patient needs a referral to continue with seeing a counselor Migraine without status migr ainosus, not intractable 07/09/2020 01/17/2022 Assessment & Plan (07/23/2020 10:25 AM CERTIFIED HEARING INSTRUMENT DISPENSER): Patient has a neurology appointment scheduled for this afternoon. Uncontrolled Daly's thyroiditis 01/19/201911/29 Assessment & Plan (01/26/2023 3:58 PM CDT): Chronic. With symptoms heat cold intolerance, inability to lose weight and anxiety that may be related to thyroid. Last TSH below normal. We will repeat in 6 weeks. Order given today. - referral provided to endocrinology - continue current dose of Greencastle thyroid Assessment & Plan (01/17/2022 2:13 PM CDT): Stable, order labs, continue current meds Assessment & Plan (04/08/2021 3:38 PM CERTIFIED HEARING INSTRUMENT DISPENSER): Check lab work, symptomatic with palpitations Assessment & Plan (07/23/2020 10:25 AM CERTIFIED HEARING INSTRUMENT DISPENSER): Stable, continue meds. Due for labs Assessment & Plan (07/09/2020 10:16 AM CERTIFIED HEARING INSTRUMENT DISPENSER): Stable, counseled patient that she needed to take her thyroid med on an empty stomach. And wait at least an hour before she took the naproxen Assessment & Plan (01/19/2019 1:24 PM CDT): New diagnosis. Patient is seen and patient resource specialist. Patient started on Greencastle Thyroid. 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 [id number]-nprgloz pain medication Assessment & Plan (02/04/2019 8:09 AM CDT): Will await evaluation by spine surgeon. Patient will continue with [id number]-xoshwxc meds if needed. Encourage patient to do mild exercise and stretching. Assessment & Plan (01/19/2019 1:24 PM CDT): Back pain not resolved with physical therapy, NSAIDs. Ordered MRI. Pending results may need to refer to pain management or try physical therapy again. Patient can continue with xrpv-mcy-laqpnhn NSAIDs as needed. Encourage patient to try sleeping on her side with a body pillow. Secondary insomnia 01/19/2019 Assessment & Plan (07/23/2020 10:26 AM CERTIFIED HEARING INSTRUMENT DISPENSER): Partially controlled. Patient is taking melatonin Assessment & Plan (03/18/2019 9:21 AM CDT): Talked with patient about treatment options. Which would include medication, sleep hygiene changes, therapy for cognitive behavioral treatment of insomnia. Plan we are going to try this Cymbalta again at 20 mg once a day. Will see if this helps with her pain and her insomnia. We may need to increase this to 20 mg b.i.d.. Patient will follow up in 4 weeks by e-mail or phone and if she is doing well I will see her back for an appointment in 3 months Assessment & Plan (02/04/2019 8:09 AM CDT): Uncontrolled. Patient to stop Ambien. Will try trazodone. Patient can take 50 mg nightly for 1-2 weeks and then increase to 75 mg if needed. Follow up in 4-6 weeks Assessment & Plan (01/19/2019 1:25 PM CDT): New diagnosis: Unsure if this is related to her low back pain, or possible restless leg. Will try a short course of Ambien. If patient reports her daytime fatigue has improved with Ambien we can continue this p.r.n. Or possibly need to consider a sleep study for restless leg syndrome Chondromalacia of patella 04/01/2012 Osteoarthritis of knee 12/24/201101/17 Assessment & Plan (07/23/2020 10:25 AM CERTIFIED HEARING INSTRUMENT DISPENSER): Albert, p.r.n. [id number]-ypnfpyw pain meds Knee pain 12/22/2011 12/01/2018 Encounters Date Type Department Care Team Description 03/13/2025 10:45 AM CDT Office Visit [facility] at [address] [phone] Rowena Leroy NP Other chest pain (Primary Dx); Lightheadedness; Family history of OK (myocardial infarction) 03/10/2025 1:30 PM CDT Office Visit [facility] [address] [place] [phone] Lacey Jimenes PA Axillary pain, right (Primary Dx); Axillary pain, left from Last 3 Months Immunizations Immunization Administration Dates Next Due Anthrax 11/01/2003, 0,04/29/1999,03/28,03/14/1999 H1N1 Inj 05/03/2009 Hep A, Adult 03/06/1999,08/31/1998 Hep B Vaccine 06/10/2014,11/19/2013,09/10/2013 Influenza LAIV (Nasal) 04/15/2013 Influenza, Quadrivalent, Spl it, Preservative Free, Intramuscular 03/11/2023,03/12/2022,03/15/2021,03/05,03/29/2019,03/13/2018,03/28/2017 Influenza, Split 05/02/2010, 9,03/08/2008,05/04,05/08/2006,06/06/2005,06/19/2004 Influenza, Trivalent, Cell Culture-based MDCK, Preservative Free, Antibiotic Free, Intramuscular 02/27/2024,03/28/2017,03/18/2014 Influenza, Trivalent, IM (MDV) 03/15/2011 Influenza, Trivalent, Preser vative Free, Intramuscular 03/01/2016,03/03/2015,03/14/2012 Influenza, Unspecified 03/01/2025(Deferr ed: Patient Refused),03/31/2024(Deferred: Patient Refused),04/01/2018 Influenza, Whole 06/06/2005, 3,03/30/2002,03/16,05/14/2000,03/14/1999,08/24/1998 Jan (J&J) SARS-CoV-2 Vaccination 08/10/2020 MMR 08/31/1998 Meningococcal MCV4P (Menactra) 01/04/2015,2009 Meningococcal Polysaccharide (Menomune) 08/24/1998 Moderna SARS-CoV-2 Monovalen t Vaccination (12+ YRS) 03/28/2021 OPV 08/31/1998,08/24/1998 PPD TEST 06/08/2001, 1,09/04/1999,08/24 Td, adsorbed 12/11/2017,08/24/1998 Tdap 11/30/2017,03/08/2008 Typhoid H-P SQ/ID 11/01/2003,02/04/2001,03/06/19 99 Typhoid Inactivated 12/11/2017, 6,11/19/2013,10/05,11/09/2009,11/01/2003,02/04/2001 ,03/06/1999 Varicella 01/05/2008,08/06/2006 Yellow Fever 11/09/2009,03/06/1999 Surgical History Surgery Date Site/Laterality Comments KNEE ARTHROSCOPY 06/01/2009 - 05/31/2010 Left APPENDECTOMY 06/01/2009 - 05/31/2010 LAPAROSCOPY 2002 and 2006 KNEE ARTHROSCOPY 06/01/2011 - 05/31/2012 Left ESOPHAGOGASTRODUODENOSCOPY 06/01/2012 - 05/31/2013 FOOT SURGERY Right 11/2016 and 07/2017 FOREIGN BODY REMOVAL 05/20/2018 Right hand PARTIAL HYSTERECTOMY 03/01/2020 - 03/31/2020 ovaries remain COLONOSCOPY Last one was 2019 ESOPHAGOGASTRODUODENOSCOPY 08/31/2023 - 09/29/2023 Medical History Medical History Date Comments Osteoarthritis of knee 12/24/2011 Vitamin D deficiency 01/15/2018 Hx of abnormal cervical Pap smear HPV (human papilloma virus) infection Daly's thyroiditis 01/19/2019 Migraines Acute reaction to situational stress 07/23/2020 Secondary insomnia 01/19/2019 Rosacea 07/23/2020 Chronic midline low back pain with bilateral sci atica 01/19/2019 Motion sickness GERD (gastroesophageal reflux disease) Anxiety PONV (postoperative nausea and vomiting) Family History Medical History Relation Name Comments Cancer Father Graeme Diabetes Father Graeme Sarcoma, small intestine Father Graeme Heart attack Maternal Grandfather Fabian Stroke Maternal Grandfather Fabian Heart attack Maternal Grandmother Deysi Arthritis Mother Pallavi Hyperlipidemia Mother Pallavi Hypertension Mother Pallavi Hypothyroidism Mother Pallavi Thyroid disease Mother Pallavi Heart attack Paternal Grandfather Augustus Stroke Paternal Grandfather Augustus Relation Name Status Comments Brother Alive Father Graeme (Age 47) Maternal Grandfather Fabian Maternal Grandmother Deysi Mother Pallavi Alive Paternal Grandfather Augustus Social History Tobacco Use Types Packs/Day Years Used Date Smoking Tobacco: Never Passive Smoke Exposure: Never Smokeless Tobacco: Never Tobacco Cessation:Counseling Given: Not Answered Alcohol Use Standard Drinks/Week Comments Yes 2 [...] on file Legal Sex Female 6:10 AM CERTIFIED HEARING INSTRUMENT DISPENSER Gender Identity Female 02/07/2019 6:12 AM CDT Sexual Orientation Straight 02/07/2019 6: 12 AM CDT 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 on file Not on file Not on file Obstetrics History Para Term AB IAB SAB Ectopic Multiple Livin g Live Births 2 2 2 Date Outcome GA Total Labor Labor/2nd/3rd Weight Sex Type Anes PTL Jodie A1 A5 Name Clin Term Term Last Filed Vital Signs Vital Sign Reading Time Taken Comments Blood Pressure 121/86 03/13/2025 10:41 AM CDT Pulse 75 03/13/2025 10:41 AM CDT Temperature 37.1 C (98.8 F) 03/13/2025 10:41 AM CDT Respiratory Rate 16 03/13/2025 10:41 AM CDT Oxygen Saturation 98% 03/13/2025 10:41 AM CDT Inhaled Oxygen Concentration - - Weight 66.2 kg (146 lb) 03/13/2025 10:41 AM CDT Height 162.6 cm (5' 4) 03/10/2025 1:16 PM CDT Body Mass Index 25.06 03/10/2025 1:16 PM CDT Plan of Treatment Health Maintenance Due Date Last Done Comments HPV Vaccines (1 - 3-dose SCDM series) 2007 Influenza Vaccine (#1) 2025 , 03/11/2023, 03/12/2022, Additional history exists Regular Well Visit/Exam 18-64 02/07/2025 02/08/2024, 01/26/2023, 01/17/2022, Additional history exists Breast Cancer Screening-Mammogram 02/28/2025 02/29/2024, 01/26/2023, 01/22/2022, Additional history exists Depression Screening 03/10/2026 03/10/2025, 09/28/2024, 04/11/2024, Additional history exists DTaP/Tdap/Td Vaccine (4 - Td or Tdap) 12/12/2027 12/11/2017, 11/30/2017, 03/08/2008, Additional history exists Varicella Vaccines Completed 01/05/2008, 08/06/2006 Hepatitis B Screening Completed 06/10/2014 , 11/19/2013, 09/10/2013 Cervical Cancer Screening Discontinued 12/30/2017 Covid-19 Vaccine Completed 02/27/2024, 04/2023, 05/10/2022, Additional history exists Hepatitis C Screening Completed 11/05/2024 Pneumococcal vaccine <65 Aged Out No longer eligible based on patient's age to complete this topic Medical Devices Implanted Type Area Hydrographic Surveyor Device Identifier Shelf Expiration Date Model / Serial / Lot Metal Right: Foot Procedures Procedure Name Priority Date/Time Associated Diagnosis Comments ECG 12-LEAD Routine 03/13/2025 10:55 AM CDT Other chest pain HEPATITIS C ANTIBODY Routine 11/05/2024 10:13 AM CDT Tinnitus of both ears Dizziness Health maintenance examination Vitamin D deficiency Migraine with aura and without status migrainosus, not intractable Chronic GERD Encounter for hepatitis C screening test for low risk patient Menopausal symptom SCREENING MAMMOGRAM BILATERAL W TIBURCIO Schedule Routine, Read Routine (OP Routine) 02/29/2024 1:48 PM CDT Screening mammogram for breast cancer HM PAP SMEAR WITH HPV Routine 12/30/2017 from Last 3 Months or Most Recently Relevant to Health Maintenance Results * ECG 12 lead (03/13/2025 10:55 AM CDT) us Rowena Leroy NP ECG ORDERABLES Edited Result - Final * Hepatitis C antibody Blood (11/05/2024 10:13 AM CDT) Hep C Ab Nonreactive Nonreactive Comment: Antibodies to HCV not detected. Does NOT exclude the possibility of recent exposure to HCV. Current interpretive data was last revised on 22 Interpretive Data Nonreactive: Antibodies to HCV not detected. Does NOT exclude the possibility of recent exposure to HCV. Equivocal: Equivocal for HCV antibodies. Supplemental molecular testing will be automatically performed to determine infection status in accordance with current CDC screening recommendations. Reactive: Positive for HCV antibodies. This may represent current or past HCV infection. Supplemental molecular testing will be automatically performed to determine current infection status in accordance with current CDC screening recommendations. Interpretive data was last revised on 2019. Blood 11/05/2024 10:1 3 AM CDT 11/05/2024 12:13 PM CDT us L[facility] MICROBIOLOGY - GENERAL ORD ERABLES Final Result [facility] [id number] [facility] Department [place] [address] * Screening Mammogram Bilateral W Tiburcio (02/29/2024 1:48 PM CDT) Anatomical Region Laterality Modality Breast Bilateral Mammography Impressions 02/29/2024 2:14 PM CDT BI-RADS ATLAS category (overall): 1 - Negative There is no mammographic evidence of malignancy. A 1 year screening mammogram is recommended. The patient has been or will be contacted. We recommend annual screening mammography for women at average risk of breast cancer beginning at age 40, based on guidelines of the [employer] (ACR Practice Parameter for the Performance of Screening and Diagnostic Mammography) and [employer]. For women with and elevated risk of breast cancer, please refer to the ACR Practice Parameter for specific screening recommendations. The patient will be entered into a reminder system with a target due date of 1 year for her next screening exam. Narrative 02/29/2024 2:14 PM CDT Screening Mammogram Bilateral W Tiburcio: 02/29/24 The study was acquired using full field digital technology and interpreted from soft copy. 2D digital mammographic views, as well as 3D digital tomosynthesis were performed in the CC and MLO projections. CLINICAL: Screening mammogram for breast cancer. No relevant medical history has been documented for this patient. No known family history of breast cancer. COMPARISONS: 01/26/2023 Screening Mammogram Bilateral W Tiburcio 11/26/2022 US Breast Left Limited 01/22/2022 SCREENING MAMMOGRAM BILATERAL W TIBURCIO 10/02/2020 Screening Mammogram Bilateral W Tiburcio BREAST TISSUE: The breasts are heterogeneously dense, which may obscure small masses. FINDINGS: No suspicious masses, suspicious calcifications, or other suspicious findings are seen within either breast. There has been no suspicious change. Lacey [facility] MAMMO PROCEDURES Final Res ult * HM PAP SMEAR WITH HPV (12/30/2017) HM Pap smear Normal Historical Provider HEALTH MAINTENANCE Final Result from Last 3 Months or Most Recently Relevant to Health Maintenance Insurance Patience [facility] PPO [facility] PPO Advance Directives For more information, please contact: [phone] Documents on File Type Date Recorded Patient Immunohematologist Expl anation ADVANCE DIRECTIVE 05/20/2018 12:00 AM [facility] [employer]ER[employer] ENGINEER FINANCIAL/MEDICAL Care Teams [employer] Relationship Specialty Start Date End Date Lacey Jimenes PA [address] [place] [address] PCP - General Physician Nylon Winder 09/10/18 Alok Keene MD [address] [place] [address] Consulting Physician Family Medicine 12/01/18
--- OUTSIDE RECORDS SUMMARY | 2025-03-13 17:10 | XMS_ITS | Encounter Summary ---
Author Organization [facility] Facility Care Team Providers Care Materials And Corrosion Engineer Name Role Phone Lacey Jimenes Primary Care Provider [phone] Alok Keene MD Unavailable + [phone] Encounter Details Date Type Department Care Team (Latest Contact Info) Description 05/20/2018 Orders Only [facility] CLINCONV ProviderNatalie MD [address] [place], [place] [id number] Social History Tobacco Use Types Packs/Day Years Used Date Smoking Tobacco: Never Comments Unknown Sex and Gender Information Value Date Recorded Sex Assigned at Not on file Legal Sex Female 6:10 AM GREIGE GOODS INSPECTOR Gender Identity Female 02/07/2019 6:12 AM CDT Sexual Orientation Straight 02/07/2019 6: 12 AM CDT documented as of this encounter Plan of Treatment Not on file documented as of this encounter Procedures Procedure Name Priority Date/Time Associated Diagnosis Comments PROCEDURE - RESULT 05/14/2018 12 :00 AM GREIGE GOODS INSPECTOR documented in this encounter Results * PROCEDURE - RESULT (05/14/2018 12:00 AM GREIGE GOODS INSPECTOR) Narrative 05/14/2018 12:00 AM GREIGE GOODS INSPECTOR Ordered by an unspecified provider. Historical Provider Final Res ult documented in this encounter Visit Diagnoses Not on filedocumented in this encounter Care Teams Materials And Corrosion Engineer Relationship Specialty Start Date End Date Lacey Jimenes PA [address] [place] [address] PCP - General Physician Psych Coordinator 09/10/18 Alok Keene MD [address] [place] [address] Consulting Physician Family Medicine 12/01/18 documented as of this encounter
--- OUTSIDE RECORDS SUMMARY | 2025-03-13 17:10 | XMS_ITS | Clinical Summary ---
Author Organization [facility] Address [facility] [facility] 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 This disclosure is being madepursuant to the Care Everywhere program and may not contain all informatio navailable regarding this patient. Last updated 18.[facility] [employer] Content Allergies No known active allergies Immunizations Immunization [...] patient's age to complete this topic Insurance [facility]
[2025-03-13] MEDS: ONDANSETRON HCL ODT 4 MG TABLET PO (18:10)
[2025-03-13] MEDS: BELLADONNA ALK/PHENOB ELIX 10 ML, MAG HYDROX/ALUMINUM HYD/SIMETH 30 ML, LIDOCAINE 2% VI... PO (18:12)
[2025-03-13 18:14] VITALS: BP 110/76; PULSE 78; RESP 20; O2SAT 100
== END 2025-03-13 18:21 | disposition home or self-care (01) ==
PROVIDERS: Physician Assistant; Emergency Provider Student in an Organized Health Care Education/Training Program; PCP Physician Assistant
DX: R07.9 Chest pain, unspecified (principal); D72.819 Decreased white blood cell count, unspecified; R10.13 Epigastric pain
CPT/HCPCS: 36415; 71046; 80053; 83690; 84484; 85025; 85380; 85610; 85730; 93005; 96374; 99284; A9270; J1885